=== PATIENT | female | born 1950 | race African-American/Black ===

== ENCOUNTER 2019-04-27 23:54 | Emergency (ER) | payer OTHER, MEDICARE ==
[~2019-04-27] VITALS: Ht 154.9 cm; Wt 94.6 kg
[2019-04-28 00:01] VITALS: BP 165/90
[2019-04-28] MEDS ORDERED: NEOMY/BACITR/POLYMYXIN OINT PACKET. TP ONE (00:15)
--- NOTE | 2019-04-28 00:16 | PHYS DOC ---
Past Medical History Past Medical History: Hypertension Past Surgical History: Other Additional Past Surgical Histo: LEFT KNEE SURGERY Additional Information: Nonsmoker Alcohol Use: None Drug Use: None Adult General Chief Complaint Chief Complaint: INSECT BITE HPI HPI 69-year-old female presents with report of multiple bee stings to her right ankle since yesterday. Patient reports she stepped on ingest and they stung her multiple times. Patient did receive stings to her arms and thighs as well. Patient does report some increased itchiness primarily to her ankle. Denies any respiratory difficulty or swelling of her tongue or lips. Patient denies known allergy to bees. Denies fever or chills. Review of Systems Review of Systems Constitutional: Denies fever or chills Eyes: Denies redness or eye pain HENT: Denies nasal congestion or sore throat Respiratory: Denies cough or shortness of breath Cardiovascular: Denies chest pain or palpitations GI: Denies abdominal pain, nausea, or vomiting : Denies dysuria or hematuria Musculoskeletal: Denies back pain or joint pain Integument: Reports pruritus and raised area at site of bee stings Neurologic: Denies headache, focal weakness or sensory changes Complete systems were reviewed and found to be within normal limits, except as documented in this note. Current Medications Current Medications Current Medications Medications (Trade) Dose Ordered Sig/Lionel Start Time Stop Time Status Last Admin Dose Admin Dexamethasone (Decadron) 10 mg 1X ONCE 04/28/19 00:30 04/28/19 00:31 DC 04/28/19 00:26 10 MG Diphenhydramine HCl (Benadryl) 25 mg 1X ONCE 04/28/19 00:30 04/28/19 00:31 DC 04/28/19 00:26 25 MG Neomycin/ Polymyxin/ Bacitracin (Triple Antibiotic Ointment) 1 pkt 1X ONCE 04/28/19 00:15 04/28/19 00:19 DC Allergies Allergies Allergies Coded Allergies Type Severity Reaction Last Updated Verified No Known Drug Allergies 04/28/19 No Physical Exam Physical Exam Constitutional: Well developed, well nourished, no acute distress, non-toxic appearance HENT: Normocephalic, atraumatic, oropharynx moist Eyes: Conjunctiva normal, no discharge Neck: Normal range of motion, no tenderness, supple Lungs & Thorax: No respiratory distress. Abdomen: Soft, no tenderness Skin: Warm, dry, no erythema, no rash Extremities: No tenderness, ROM intact, no edema Neurologic: Alert and oriented X 3, no focal deficits noted Psychologic: Affect normal, judgement normal Current Patient Data Vital Signs Vital Signs Date Time Temp Pulse Resp B/P (MAP) Pulse Ox O2 Delivery O2 Flow Rate FiO2 04/28/19 00:01 97.2 89 16 165/90 (115) 97 Room Air 97.2 EKG EKG [] Radiology/Procedures Radiology/Procedures [] Course & Med Decision Making Course & Med Decision Making Patient presents with history of present illness and physical exam consistent for wasp stings. Symptomatic treatment provided with oral steroid and Benadryl. Wounds cleaned. Patient stable for discharge with outpatient follow-up with PCP. Discussed findings and plan with patient and family, who acknowledge understanding and agreement. Dragon Disclaimer Dragon Disclaimer This electronic medical record was generated, in whole or in part, using a voice recognition dictation system. Departure Departure Impression: Primary Impression: Bee sting Disposition: HOME, SELF-CARE Condition: STABLE Referrals: SALONI FORD (PCP) Patient Instructions: Bee, Wasp, or Hornet Sting Additional Instructions: Use over the counter Benadryl as needed for itching. May also use over the counter Hydrocortisone cream as directed. Problem Qualifiers Primary Impression: Bee sting Encounter type: initial encounter Injury intent: undetermined intent Qualified Codes: T63.444A - Toxic effect of venom of bees, undetermined, initial encounter BERNA BORJA DO Apr 28, 2019 00:16
[2019-04-28] MEDS ORDERED: DEXAMETHASONE 4 MG TABLET PO ONE (00:30)
[2019-04-28] MEDS ORDERED: diphenhydrAMINE HCL 25 MG CAPSULE PO ONE (00:30)
== END 2019-04-28 00:25 | disposition home or self-care (01) ==
LOC: ER 23:54
DX: T63.444A Toxic effect of venom of bees, undetermined, initial encounter (principal); I10 Essential (primary) hypertension; Y92.89 Other specified places as the place of occurrence of the external cause
CPT/HCPCS: 99283; J8540; Q0163